=== PATIENT | male | born 1955 | race Caucasian/White ===

== ENCOUNTER → 2025-09-18 02:46 | Outpatient (CLI) | payer MEDICARE, SELFPAY ==
--- NOTE | 2025-09-18 07:00 | DI.CT_ITS ---
Exam(s) CT SINUS WO EXAM: CT SINUS WO CLINICAL HISTORY: Right chronic maxillary sinusitis, headaches,J32.0. Evaluate for sinusitis. TECHNIQUE: Imaging Protocol: Axial computed tomography images with coronal and sagittal reformatted images were created and reviewed. COMPARISON: No exams were available for comparison FINDINGS: Frontal sinuses: Minimal mucosal thickening in the right frontal sinus. Ethmoid air cells: Minimal mucosal thickening. Maxillary sinuses: Significant mucous retention is noted within the right maxillary sinus. The left maxillary sinus is clear. Sphenoid sinuses: Normally aerated. Ostiomeatal complexes: Patent. Nasal cavity: Septum is midline. Raquel bullosa of the left middle turbinate. Visualized regional soft tissues: No acute findings. Orbits: Unremarkable. Bones: Unremarkable. Mastoid Air Cells: Normally aerated. Visualized portions of the brain: Unremarkable as visualized. IMPRESSION: Significant mucous retention within the right maxillary sinus. Minimal mucosal thickening of the right frontal and a few ethmoid sinuses. RADIATION DOSE DELIVERED: 133.27mGy.cm Total DLP DATA REPOSITORY: All CT scans at this facility are submitted to the National Radiology Data Registry (NRDR) Dose Index Registry (DIR) with the [employer] ([employer]). RADIATION OPTIMIZATION: All CT scans at this facility use at least one of these dose optimization techniques: automated exposure control; mA and/or kV adjustment per patient size (includes targeted exams where dose is matched to clinical indication); or iterative reconstruction.
== END ==
LOC: DI 02:46
PROVIDERS: PCP Nurse Practitioner Family; Visit Provider Otolaryngology
DX: J32.0 Chronic maxillary sinusitis (principal)
CPT/HCPCS: 70486